=== PATIENT | male | born 1995 | race Caucasian/White ===

== ENCOUNTER 2023-10-17 11:43 | Emergency (ER) | payer OTHER, SELFPAY ==
[2023-10-17 11:44] VITALS: BP 130/74; PULSE 65; RESP 18; TEMP 36.6; O2SAT 100
[2023-10-17] MEDS: ACETAMINOPHEN 500 MG TABLET 1000 MG PO (12:44)
[2023-10-17] MEDS: KETOROLAC 30 MG/ML VIAL (*BKC) IM (12:44)
--- NOTE | 2023-10-17 13:17 | ED.NECK ---
HPI - Neck Pain/Injury General Chief Complaint: Back Pain/Injury Stated Complaint: Spasms in neck and back Time Seen by Provider: 10/17/23 11:53 Source: patient Mode of arrival: ambulatory Limitations: no limitations History of Present Illness HPI Narrative: This is a 28 year old male that presents to the ER for left sided neck pain. Reports it started the day after being in a small space crawling around and fixing an aircraft. Reports spasm and stiffness on the left side of the neck. Denies numbness or weakness. Related Data Allergies Allergy/AdvReac Type Severity Reaction Status Date / Time No Known Allergies Allergy Verified 10/17/23 11:51 Review of Systems Review of Systems: CONSTITUTIONAL: Denies fever SKIN: Denies rash MUSCULOSKELETAL: Reports myalgia. NEUROLOGIC: Denies numbness, or weakness. All systems reviewed & are unremarkable except as noted in HPI and below PMFSH Past Medical History Medical History (Updated 10/17/23 @ 13:20 by Radha Kaplan PA-C) No active medical problems Social History Social History (Updated 10/17/23 @ 13:20 by Radha Kaplan PA-C) Smoking status: Never smoker Substance use: never Exam Narrative: GENERAL: Well-appearing, well-nourished, and in no acute distress. HEAD: Normocephalic, atraumatic. EYES: EOMI. NECK: Supple. No adenopathy or masses. Left sided trapezius musculature tender to palpation CHEST: No respiratory distress. HEART: Regular rate EXTREMITIES: Normal range of motion. No edema. SKIN: Warm, dry, no rash. NEURO: No focal deficits. Alert and oriented x3. PSYCH: Normal mood and affect Course Course Emergency Course: Patient agrees with plan of care Vital Signs Vital signs: Vital Signs Temperature 98 F 10/17/23 11:44 Pulse Rate 65 10/17/23 11:44 Respiratory Rate 18 10/17/23 11:44 Blood Pressure 130/74 10/17/23 11:44 Pulse Oximetry 100 10/17/23 11:44 Oxygen Delivery Room Air 10/17/23 11:44 Temperature 98 F 10/17/23 11:44 Pulse Rate 65 10/17/23 11:44 Respiratory Rate 18 10/17/23 11:44 Blood Pressure 130/74 10/17/23 11:44 Pulse Oximetry 100 10/17/23 11:44 Oxygen Delivery Room Air 10/17/23 11:44 MDM - Neck Pain/Injury MDM Narrative Medical decision making narrative: Patient presents to the emergency department for left-sided neck pain. Reporting muscle spasms. No recent injuries or trauma. He is neurologically intact. Tender to palpation of the left trapezius musculature. Given dose of Toradol and Tylenol in the ED. He did not wish to have a muscle relaxer at this time as he is driving. Will be prescribed muscle relaxers and was instructed on further care of muscle spasm. He was given warnings to return to the ER Differential Diagnosis Differential diagnosis: Likely torticollis, cervical spondylosis, strain of neck muscle and other (muscle spasm) Critical Care Time Critical Care Time Critical Care Time: No Discharge Plan Discharge Clinical Impression: Muscle spasm Patient Disposition: Home, Self-Care Condition: Stable Instructions: Muscle Spasm (ED) Additional Instructions: Return to the ER if you experience weakness, numbness, or any other symptoms that are concerning to you Rest, use heat, take anti-inflammatories (Aleve, Ibuprofen, Naproxen, etc) or Tylenol as needed for pain as well as muscle relaxer (Flexeril) as needed for pain. Muscle relaxers can make you drowsy, do not drive if you take this Follow up with your primary care doctor Prescriptions: New cyclobenzaprine 10 mg tablet 10 mg PO TID PRN (Reason: muscle spasm) Qty: 14 0RF Follow-up/Referrals: UNKNOWN,DOCTOR [Primary Care Provider] -
== END 2023-10-17 13:33 | disposition home or self-care (01) ==
PROVIDERS: Emergency Provider Physician Assistant
DX: R25.2 Cramp and spasm (principal)
CPT/HCPCS: 96372; 99283; A9270; J1885